=== PATIENT | female | born 1950 | race Caucasian/White ===

== ENCOUNTER 2020-04-13 22:14 | Emergency (ER) | payer MEDICARE ==
[~2020-04-13] VITALS: Ht 165.1 cm; Wt 90.0 kg
--- NOTE | 2020-04-13 22:21 | PHYS DOC ---
Past History Past Medical History: COPD, Hypertension Past Medical History neuropathy Past Surgical History: Cholecystectomy, Tubal ligation Past Surgical History Right hip, both knees, right rotator cuff, both femurs Smoking: Second-hand Alcohol Use: None General Adult EDM: Chief Complaint: HEADACHE HPI: HPI: Patient is a 69 year old female who presents for evaluation of a moderate headache that started this morning. She also was having some right-sided neck pain. Patient is wearing a sling and is status post rotator cuff surgery done on April 06 at [facility] by Dr. Jha/patient states the pain from her neck radiates up to the back of her head. Patient is not on a blood thinner. Patient states that she was in moderate pain on arrival. She had taken various doses of her pain medication prior to arrival with no improvement of symptoms. There is no reported injury, fall or trauma. She has no focal deficits or lateralizing signs Review of Systems: Review of Systems: Constitutional: Denies fever or chills Eyes: Denies change in visual acuity HENT: Denies nasal congestion or sore throat Respiratory: has chronic cough and shortness of breath Cardiovascular: Denies chest pain or edema GI: Denies abdominal pain, has nausea, no vomiting, bloody stools or diarrhea : Denies dysuria Musculoskeletal: Has right-sided neck tenderness Integument: Denies rash Neurologic: has moderate headache, but no focal weakness or sensory changes Endocrine: Denies polyuria or polydipsia Lymphatic: Denies swollen glands Psychiatric: Denies depression or anxiety Heart Score: Risk Factors: Risk Factors: DM, Current or recent (<one month) smoker, HTN, HLP, family history of CAD, obesity. Risk Scores: Score 0 - 3: 2.5% MACE over next 6 weeks - Discharge Home Score 4 - 6: 20.3% MACE over next 6 weeks - Admit for Clinical Observation Score 7 - 10: 72.7% MACE over next 6 weeks - Early Invasive Strategies Physical Exam: PE: Constitutional: Well developed, well nourished, mild to moderate distress, non- toxic appearance. [] HENT: Normocephalic, atraumatic, bilateral external ears normal, oropharynx moist, no oral exudates, nose normal. [] Eyes: PERRL, EOMI, conjunctiva normal, no discharge. [] Neck: Normal range of motion, right sided paraspinal tenderness, supple, no stridor. [] Cardiovascular:Heart rate regular rhythm, no murmur [] Lungs & Thorax: Bilateral breath sounds clear to auscultation but wheezing present [] Abdomen: Bowel sounds normal, soft, no tenderness, no masses. [] Skin: Warm, dry, no erythema, no rash. [] Back: No tenderness. [] Extremities: No tenderness, no cyanosis, ROM intact, no edema. [] Neurologic: Alert and oriented X 3, normal motor function, normal sensory function, no focal deficits noted. [] Psychologic: Affect normal, judgement normal, mood normal. [] Current Patient Data: Labs: Laboratory Tests Test 04/13/20 22:40 White Blood Count 11.1 x10^3/uL Red Blood Count 4.65 x10^6/uL Hemoglobin 14.6 g/dL Hematocrit 42.6 % Mean Corpuscular Volume 92 fL Mean Corpuscular Hemoglobin 31 pg Mean Corpuscular Hemoglobin Concent 34 g/dL Red Cell Distribution Width 13.9 % Platelet Count 327 x10^3/uL Neutrophils (%) (Auto) 64 % Lymphocytes (%) (Auto) 24 % Monocytes (%) (Auto) 8 % Eosinophils (%) (Auto) 2 % Basophils (%) (Auto) 1 % Neutrophils # (Auto) 7.1 x10^3uL Lymphocytes # (Auto) 2.7 x10^3/uL Monocytes # (Auto) 0.9 x10^3/uL Eosinophils # (Auto) 0.2 x10^3/uL Basophils # (Auto) 0.1 x10^3/uL Sodium Level 136 mmol/L Potassium Level 4.4 mmol/L Chloride Level 101 mmol/L Carbon Dioxide Level 28 mmol/L Anion Gap 7 Blood Urea Nitrogen 19 mg/dL Creatinine 1.0 mg/dL Estimated GFR (Cockcroft-Gault) 54.7 BUN/Creatinine Ratio 19 Glucose Level 111 mg/dL Calcium Level 9.8 mg/dL Total Bilirubin 0.3 mg/dL Aspartate Amino Transf (AST/SGOT) 13 U/L Alanine Aminotransferase (ALT/SGPT) 17 U/L Alkaline Phosphatase 124 U/L Total Protein 7.2 g/dL Albumin 3.2 g/dL Albumin/Globulin Ratio 0.8 Current Medications Medications (Trade) Dose Ordered Sig/Rj Route PRN Reason Start Time Stop Time Status Last Admin Dose Admin Sodium Chloride 1,000 ml @ 75 mls/hr 1X ONCE IV 04/13/20 23:00 04/14/20 12:19 04/13/20 22:45 Orphenadrine Citrate (Norflex) 60 mg 1X ONCE IM 04/13/20 23:00 04/13/20 22:48 DC Ondansetron HCl (Zofran) 4 mg 1X ONCE IVP 04/13/20 23:00 04/13/20 23:01 DC 04/13/20 22:45 Orphenadrine Citrate (Norflex) 60 mg 1X ONCE IV 04/13/20 23:30 04/13/20 23:31 DC 04/13/20 22:51 Diphenhydramine HCl (Benadryl) 50 mg STK-MED ONCE .ROUTE 04/13/20 23:04 04/13/20 23:05 DC Diphenhydramine HCl (Benadryl) 25 mg 1X ONCE IVP 04/13/20 23:15 04/13/20 23:16 DC 04/13/20 23:11 Methylprednisolone Sodium Succinate (SOLU-Medrol 125MG VIAL) 125 mg 1X ONCE IV 04/13/20 23:45 04/13/20 23:46 Fentanyl Citrate (Fentanyl 2ml Vial) 50 mcg 1X ONCE IVP 04/13/20 23:45 04/13/20 23:46 EKG: EKG: [] Radiology/Procedures: Radiology/Procedures: [address] [id number] IMAGING REPORT Signed PATIENT: HERIBERTO BAILON ACCOUNT: [id number] : 1950 LOCATION: ER AGE: 69 SEX: F EXAM STATUS: REG ER ORD. PHYSICIAN: KEATON DAMICO DO REASON: Moderate headache and neck pain after right shoulder surgery PROCEDURE: CT HEAD AND CERVICAL SPINE WO CT brain without contrast, CT cervical spine without contrast. HISTORY: Headache and neck pain after right shoulder surgery CT brain CT scan of brain was done without contrast. Visualized sinuses are clear. There is no intracranial hemorrhage or subdural hematoma. Ventricles are normal in size. There is no mass or shift of the midline. An acute CVA is not identified. There is a cortical defect at the right cerebellum. An old CVA is possible. IMPRESSION: 1. No intracranial hemorrhage or acute finding noted. 2. Cortical defect right cerebellum possible old CVA. End impression CT cervical spine Axial CT images were obtained to the cervical spine. Sagittal and coronal reconstructed images were reviewed. There is a 2.5 cm lesion in the right thyroid, ultrasound would be of benefit. A C-spine fracture is not identified. There is mild facet arthritis. There is degenerative disc disease at C5-6 and C6-7. There is mild foraminal stenosis at C5-6. impression: 1. Degenerative spondylosis in the cervical spine. 2. No acute C-spine fracture noted. PQRS Compliance Statement: One or more of the following individualized dose reduction techniques were utilized for this examination: 1. Automated exposure control 2. Adjustment of the mA and/or kV according to patient size 3. Use of iterative reconstruction technique Electronically signed by: Nitesh Henderson MD (04/13/2020 11:18 PM) [id number] DICTATED AND SIGNED BY: NITESH HENDERSON MD DATE: 04/13/202317 CC: YAMILET MEDEIROS MD; KEATON DAMICO DO ~ [] Course & Med Decision Making: Course & Med Decision Making Pertinent Labs and Imaging studies reviewed. (See chart for details) 2325 Stable, feeling minimally improved at this time. Solumedrol and dose of Fentanyl added. CT head/cspine negative for acute findings but there was an old lacunar infarction and a thyroid nodule that will need close outpatient follow up. 0005 Stable, ready for discharge and pain is controlled Margie Disclaimer: Margie Disclaimer: This electronic medical record was generated, in whole or in part, using a voice recognition dictation system. Departure Departure: Impression: Primary Impression: Cervical strain, acute Qualified Codes: S16.1XXA - Strain of muscle, fascia and tendon at neck level, initial encounter Additional Impressions: Headache Qualified Codes: G44.209 - Tension-type headache, unspecified, not intractable Status post shoulder surgery Disposition: 01 HOME/RESIDENCE PRIOR TO ADM Condition: STABLE Referrals: YAMILET MEDEIROS MD (PCP) Patient Instructions: Cervical Sprain, Headache, FAQs Additional Instructions: Rest, ice the new area of neck pain, and elevate the injured area. Continue home medication as directed, there are 2 findings on your CAT scan one was an old stroke and also you have an incidental finding of a thyroid nodule that will also need outpatient follow-up. You may need to get a sonogram and check your thyroid Justification of Admission: Justification of Admission: Justification of Admission Dx: N/A KEATON DAMICO DO Apr 13, 2020 22:21
[2020-04-13] MEDS ORDERED: ONDANSETRON PF 4 MG/2 ML VIAL. IVP ONE (23:00)
[2020-04-13] MEDS ORDERED: ORPHENADRINE CITRATE 60 MG/2 ML VIAL. IM ONE (23:00)
[2020-04-13] MEDS ORDERED: IV NORMAL SALINE 1,000ML 1,000 ML IV ONE (23:00)
[2020-04-13] MEDS ORDERED: diphenhydrAMINE 50 MG/ML VIAL ONE (23:04)
[2020-04-13] MEDS ORDERED: diphenhydrAMINE 50 MG/ML VIAL IVP ONE (23:15)
[2020-04-13 23:17] LABS: BASO # 0.1 x10^3/uL (0.0-0.2); BASO % 1 % (0-3); EOS # 0.2 x10^3/uL (0.0-0.7); EOS % 2 % (0-3); HEMATOCRIT 42.6 % (36.0-47.0); HEMOGLOBIN 14.6 g/dL (12.0-15.5); LYMPH # 2.7 x10^3/uL (1.0-4.8); LYMPH % 24 % (24-48); MEAN CORPUSCULAR HEMOGLOBIN 31 pg (25-35); MEAN CORPUSCULAR HGB CONC 34 g/dL (31-37); MEAN CORPUSCULAR VOLUME 92 fL (79-100); MONO # 0.9 x10^3/uL (0.0-1.1); MONO % 8 % (0-9); NEUT # 7.1 x10^3uL (1.8-7.7); NEUT % 64 % (31-73); PLATELET COUNT 327 x10^3/uL (140-400); RED BLOOD COUNT 4.65 x10^6/uL (3.50-5.40); RED CELL DISTRIBUTION WIDTH 13.9 % (11.5-14.5); WHITE BLOOD COUNT 11.1 x10^3/uL (4.0-11.0)
[2020-04-13 23:21] LABS: CALCIUM 9.8 mg/dL (8.5-10.1); GFR 54.7; POTASSIUM 4.4 mmol/L (3.5-5.1)
--- NOTE | 2020-04-13 23:21 | RAD ---
CT brain without contrast, CT cervical spine without contrast. HISTORY: Headache and neck pain after right shoulder surgery CT brain CT scan of brain was done without contrast. Visualized sinuses are clear. There is no intracranial hemorrhage or subdural hematoma. Ventricles are normal in size. There is no mass or shift of the midline. An acute CVA is not identified. There is a cortical defect at the right cerebellum. An old CVA is possible. IMPRESSION: 1. No intracranial hemorrhage or acute finding noted. 2. Cortical defect right cerebellum possible old CVA. End impression CT cervical spine Axial CT images were obtained to the cervical spine. Sagittal and coronal reconstructed images were reviewed. There is a 2.5 cm lesion in the right thyroid, ultrasound would be of benefit. A C-spine fracture is not identified. There is mild facet arthritis. There is degenerative disc disease at C5-6 and C6-7. There is mild foraminal stenosis at C5-6. impression: 1. Degenerative spondylosis in the cervical spine. 2. No acute C-spine fracture noted. PQRS Compliance Statement: One or more of the following individualized dose reduction techniques were utilized for this examination: 1. Automated exposure control 2. Adjustment of the mA and/or kV according to patient size 3. Use of iterative reconstruction technique Electronically signed by: Nitesh Henderson MD (04/13/2020 11:18 PM) [id number]
[2020-04-13 23:27] LABS: ALBUMIN 3.2 g/dL (3.4-5.0); ALBUMIN/GLOBULIN RATIO 0.8 (1.0-1.7); TOTAL BILIRUBIN 0.3 mg/dL (0.2-1.0); TOTAL PROTEIN 7.2 g/dL (6.4-8.2)
[2020-04-13] MEDS ORDERED: ORPHENADRINE CITRATE 60 MG/2 ML VIAL. IV ONE (23:30)
[2020-04-13] MEDS ORDERED: methylPREDNISolone SOD SUCC PF 125 MG/2 ML VIAL. IV ONE (23:45)
[2020-04-13 23:59] VITALS: BP 148/69
[2020-04-14] MEDS ORDERED: ORPH-16 PO (00:10)
== END 2020-04-14 00:15 | disposition home or self-care (01) ==
LOC: ER 22:14
DX: S16.1XXA Strain of muscle, fascia and tendon at neck level, initial encounter (principal); R51 Headache; J44.9 Chronic obstructive pulmonary disease, unspecified; I10 Essential (primary) hypertension; Z77.22 Contact with and (suspected) exposure to environmental tobacco smoke (acute) (chronic); Z98.890 Other specified postprocedural states; X58.XXXA Exposure to other specified factors, initial encounter; Y93.89 Activity, other specified; Y92.89 Other specified places as the place of occurrence of the external cause; Y99.8 Other external cause status
CPT/HCPCS: 36415; 70450; 72125; 80053; 85025; 96374; 96375; 99285; J1200; J2360; J2405; J2930; J3010; J7030

== ENCOUNTER → 2020-04-21 | Outpatient (CLI) | payer MEDICARE ==
[2020-04-13 23:59] VITALS: BP 148/69
[~2020-04-21] MED LIST: ORPH-16 PO
--- NOTE | 2020-04-21 09:47 | RAD ---
EXAM: RIGHT SHOULDER 3 VIEWS. HISTORY: Right shoulder pain. COMPARISON: None. FINDINGS: No fractures are identified. A calcification in the region of the infraspinatus tendon insertion is consistent with calcific tendinitis. The glenohumeral joint space is not profiled, but alignment is maintained. Acromioclavicular osteoarthritis is moderate to severe. Inferiorly directed spurring measures 2.5 mm. IMPRESSION: 1. 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 2. Moderate to severe acromioclavicular osteoarthritis with inferiorly directed spurring. Correlate for impingement. Electronically signed by: Ac Bhagat MD (04/21/2020 9:44 AM) [id number]
== END ==
LOC: DXRAD 09:21
PROVIDERS: ATTEND Physician Assistant
DX: M19.011 Primary osteoarthritis, right shoulder (principal); M75.81 Other shoulder lesions, right shoulder
CPT/HCPCS: 73030

== ENCOUNTER → 2020-08-31 | Outpatient (CLI) | payer MEDICARE ==
--- NOTE | 2020-08-31 17:25 | RAD ---
Examination: 1. Bilateral digital diagnostic mammogram. 2. Limited right breast ultrasound. INDICATION: 69-year-old woman with areas of palpable concern in the medial right breast. She is due for screening. COMPARISON: None. This will serve as a new baseline. TECHNIQUE: CC and MLO views of the bilateral breasts was performed with 2-D and 3-D technique and reviewed with computer-aided detection. Targeted ultrasound of the areas of palpable concern as reported by the patient was also performed in the medial right breast. FINDINGS: Scattered fibroglandular densities. The areas of palpable concern unremarkable BB markers at the skin surface in the medial right breast. There is no mammographic correlate to these areas of palpable concern. No dominant mass, suspicious calcifications or architectural distortion is present in either breast. Targeted ultrasound of the medial right breast in the areas of palpable concern as reported by the patient revealed no sonographic abnormality. No sonographic correlate to the areas of palpable concern. IMPRESSION: Negative bilateral mammogram and targeted right breast ultrasound. No evidence of malignancy. Recommend clinical management of any areas of concern including biopsy of any clinically suspicious areas. In the absence of a clinically suspicious finding, recommend return to routine screening. BI-RADS Category 1 Negative Clinical management and routine annual screening recommended. Patient entered into a reminder system with targeted due date for next mammogram. Electronically signed by: Shahriar Gifford MD (08/31/2020 5:22 PM) [id number]
== END ==
LOC: MAMMO 13:55
PROVIDERS: ATTEND Family Medicine
DX: R92.8 Other abnormal and inconclusive findings on diagnostic imaging of breast (principal)
CPT/HCPCS: 76641; 77066; G0279; 77062

== ENCOUNTER 2021-02-24 21:40 | Emergency (ER) | payer MEDICARE ==
[~2021-02-24] VITALS: Ht 165.1 cm; Wt 82.0 kg
--- NOTE | 2021-02-24 22:49 | RAD ---
CT HEAD AND MAXILLOFACIAL WO Date: 02/24/2021 10:14 PM Clinical Indication: Pain, fall Comparison: None. Technique: 5 mm axial tomographic images were obtained of the head without contrast. These were view ed on brain and bone windows. Axial helical images of the face were obtained without contrast. Axial and coronal reconstruction was performed. One or more of the following dose reduction techniques were utilized: Automated exposure control (AEC), Adjustment of mA and/or kV according to patient size, Us e of iterative reconstruction technique such as ASiR, CT scan done according to ALARA and image gentl y/image wisely CT HEAD FINDINGS: The brain parenchyma is normal in attenuation. No intra- or extra-axial mass or fluid collection. No acute hemorrhage. The ventricles are normal in size, shape, and morphology. The white-white matter ruel ction is normal. The basilar cisterns are patent. The mastoid air cells are clear. No aggressive osseous lesion or fracture. CT FACE FINDINGS: There is no acute facial bone fracture. Secretions in the left maxillary sinus. The orbits are normal. The globes are intact. The nasal septu m is deviated to the right. Impression: 1. No acute intracranial process. 2. No acute facial bone fracture. Electronically signed by: Nicolás Lozoya MD (02/24/2021 10:46 PM) [facility]
--- NOTE | 2021-02-24 22:58 | PHYS DOC ---
Past History Past Medical History: Hypertension Additional Past Medical Histor: neuropathy Past Surgical History: Other Additional Past Surgical Histo: rotator cuff, bilateral femur, rt knee, bilateral hips Smoking: Second-hand Alcohol Use: None Adult General Chief Complaint Chief Complaint: MECHANICAL FALL HPI HPI Patient is a 70-year-old female, otherwise healthy on no blood thinners who presents to the emergency department with a chief complaint of fall. States that her and son were doing some gardening and left a bag of mulch which she tripped over and fell forward. States she landed on some carpet forehead first. Denies headache, loss of consciousness, changes in vision, neck pain, chest pain, shortness of breath, abdominal pain, nausea, vomiting. Denies any numbness/weakness/tingling. States she really did not want to come to the ED as there is nothing wrong with her but her family made her. States she is able to walk without issue. States she is ready to go home right now. Review of Systems Review of Systems Review of systems otherwise unremarkable except noted in HPI. Allergies Allergies Allergies Coded Allergies Type Severity Reaction Last Updated Verified Penicillins Allergy Intermediate 04/13/20 Yes Sulfa (Sulfonamide Antibiotics) Allergy Intermediate 04/13/20 Yes Physical Exam Physical Exam Constitutional: Well developed, well nourished, no acute distress, non-toxic appearance. [] HENT: 2, 2 cm linear lacerations just above the eyebrows bilaterally with hemo stasis achieved and no need for repair. Eyes: PERRLA, EOMI, conjunctiva normal, no discharge. [] Neck: Normal range of motion, no tenderness, supple, no stridor. [] Cardiovascular:Heart rate regular rhythm, no murmur [] Lungs & Thorax: Bilateral breath sounds clear to auscultation [] Abdomen: soft, no tenderness, no masses, no pulsatile masses. [] Skin: Warm, dry, no erythema, no rash. [] Back: No tenderness, Extremities: No tenderness, no cyanosis, no clubbing, ROM intact, no edema. [] Neurologic: Alert and oriented X 3, normal motor function, normal sensory functi on, able to sit without issue, able to walk without issue no focal deficits noted. [] Psychologic: Affect normal, judgement normal, mood normal. [] Current Patient Data Vital Signs Vital Signs Date Time Temp Pulse Resp B/P (MAP) Pulse Ox O2 Delivery O2 Flow Rate FiO2 02/24/21 22:00 98.4 75 16 158/106 (123) 98 Room Air EKG EKG [] Radiology/Procedures Radiology/Procedures []T HEAD AND MAXILLOFACIAL WO Date: 02/24/2021 10:14 PM Clinical Indication: Pain, fall Comparison: None. Technique: 5 mm axial tomographic images were obtained of the head without contrast. These were viewed on brain and bone windows. Axial helical images of the face were obtained without contrast. Axial and coronal reconstruction was performed. One or more of the following dose reduction techniques were utilized: Automated exposure control (AEC), Adjustment of mA and/or kV according to patient size, Use of iterative reconstruction technique such as ASiR, CT scan done according to ALARA and image gently/image wisely CT HEAD FINDINGS: The brain parenchyma is normal in attenuation. No intra- or extra-axial mass or fluid collection. No acute hemorrhage. The ventricles are normal in size, shape, and morphology. The white-white matter junction is normal. The basilar cisterns are patent. The mastoid air cells are clear. No aggressive osseous lesion or fracture. CT FACE FINDINGS: There is no acute facial bone fracture. Secretions in the left maxillary sinus. The orbits are normal. The globes are intact. The nasal septum is deviated to the right. Impression: 1. No acute intracranial process. 2. No acute facial bone fracture. Electronically signed by: Nicolás Lozoya MD (02/24/2021 10:46 PM) [facility] Heart Score C/O Chest Pain: No Risk Factors: Risk Factors: DM, Current or recent (<one month) smoker, HTN, HLP, family history of CAD, obesity. Risk Scores: Risk Factors: DM, Current or recent (<one month) smoker, HTN, HLP, family history of CAD, obesity. Course & Med Decision Making Course & Med Decision Making Patient is a 70-year-old female who presents to the emergency department after a fall with 2 lacerations to the forehead Vital signs not concerning. Physical exam noted above. Imaging noted above with no acute osseous abnormalities. Bilateral forehead lacerations are small, and superficial with hemostasis achieved and no need for suture repair. Wounds cleaned and bandaged. Tetanus updated. Given pain medication. Advised on pain control with home. Advised to follow-up with primary care as needed. Gave strict return precautions to the ED. P atient grateful, verbalized understanding and agreed with plan of discharge. [] Dragon Disclaimer Dragon Disclaimer This electronic medical record was generated, in whole or in part, using a voice recognition dictation system. Departure Departure: Impression: Primary Impression: Fall Additional Impression: Forehead laceration Disposition: HOME / SELF CARE / HOMELESS Condition: GOOD Referrals: YAMILET MEDEIROS MD (PCP) Patient Instructions: Facial Laceration, Fall Prevention and Home Safety Additional Instructions: Please read all of the attached information very carefully. Please keep your wounds clean and dry and bandaged as discussed and demonstrated. Your tetanus was updated today. You can use Tylenol, ibuprofen and ice as needed for pain control. Please follow-up with your primary care as needed. Please come back to the emergency department immediately with new or concerning symptoms as discussed. Problem Qualifiers KEATON DEAN MD February 24, 2021 22:58
[2021-02-24] MEDS ORDERED: oxyCODONE/APAP 5/325 1 TAB TABLET PO ONE (23:15)
[2021-02-24] MEDS ORDERED: DIPH,PERTUSS(ACELL),TET VAC/PF 0.5 ML SYRINGE. VAX IM ONE (23:15)
[2021-02-24 23:25] VITALS: BP 148/70
== END 2021-02-24 22:46 | disposition home or self-care (01) ==
LOC: ER 21:40
DX: S01.81XA Laceration without foreign body of other part of head, initial encounter (principal); I10 Essential (primary) hypertension; Z77.22 Contact with and (suspected) exposure to environmental tobacco smoke (acute) (chronic); Z88.0 Allergy status to penicillin; Z88.2 Allergy status to sulfonamides; W18.00XA Striking against unspecified object with subsequent fall, initial encounter; Y93.89 Activity, other specified; Y92.89 Other specified places as the place of occurrence of the external cause; Y99.8 Other external cause status
CPT/HCPCS: 70450; 70486; 90471; 90715; 99285-25